=== PATIENT | male | born 1990 | race Caucasian/White ===

== ENCOUNTER 2019-12-21 11:56 | Emergency (ER) | payer SELFPAY ==
[~2019-12-21] VITALS: Ht 182.9 cm; Wt 70.5 kg
[2019-12-21 12:01] VITALS: BP 147/83
[2019-12-21] MEDS ORDERED: BUPR1FIL3 SL (12:33)
[2019-12-21] MEDS ORDERED: buprenorphine/naloxone 8MG-2MG SUBlingual film SL ONE (12:35)
== END 2019-12-21 13:07 | disposition home or self-care (01) ==
LOC: ER 11:57
DX: F11.29 Opioid dependence with unspecified opioid-induced disorder (principal); F12.90 Cannabis use, unspecified, uncomplicated; F17.200 Nicotine dependence, unspecified, uncomplicated; G25.81 Restless legs syndrome; M54.9 Dorsalgia, unspecified; G47.00 Insomnia, unspecified; M79.603 Pain in arm, unspecified; Z79.899 Other long term (current) drug therapy
CPT/HCPCS: 99282